=== PATIENT | male | born 1960 | race Caucasian/White ===

== ENCOUNTER 2019-10-20 08:36 | Emergency (ER) | payer OTHER ==
--- NOTE | 2019-10-20 09:05 | ED Physician Documentation ---
History of Present Illness - Stated complaint Stated Complaint: FACIAL NUMBNESS - LT SIDE - Chief complaint Chief Complaint: Neuro - History obtained from History obtained from: Patient - Additonal information Additional information: Patient comes emergency department complaining of right facial droop that he noticed this morning. Patient states he felt some numbness on his left face yesterday and had some weakness there. However, this seemed to resolve on its own. Patient states that he woke up this morning with low for his dog and that his right eye was tearing and felt scratchy. He looked in the mirror and realized his entire right face was drooping and weak. Patient states that he has never had symptoms like this before. He has a history of hypertension, for which she is not currently taking any medications. He states that he has not had any recent viral illnesses, but has had a headache recently. He denies any weakness or sensory deficit in his arms or legs. He states he has been able to walk normally. Patient denies any nausea or chest pain. He is otherwise feeling well. No other complaints at this time. Review of Systems Ten Systems: 10 systems reviewed and negative Constitutional: reports: Reviewed and negative Eyes: reports: Reviewed and negative Ears: reports: Reviewed and negative Nose: reports: Reviewed and negative Throat: reports: Reviewed and negative Cardiac: reports: Reviewed and negative Respiratory: reports: Reviewed and negative GI: reports: Reviewed and negative : reports: Reviewed and negative Skin: reports: Reviewed and negative Musculoskeletal: reports: Reviewed and negative Neurologic: reports: Focal weakness, Numbness Psychiatric: reports: Reviewed and negative Endocrine: reports: Reviewed and negative Immunocompromised: reports: Reviewed and negative PD PAST MEDICAL HISTORY - Past Medical History Past Medical History: Yes Cardiovascular: Hypertension - Present Medications Home Medications: Ambulatory Orders Medication Instructions Recorded Confirmed Acyclovir [Zovirax] 200 mg PO 5XD 7 Days #35 capsule 10/20/19 predniSONE [Prednisone] 60 mg PO DAILY #15 tablet 10/20/19 - Allergies Allergies/Adverse Reactions: Allergies Allergy/AdvReac Type Severity Reaction Status Date / Time Penicillins Allergy Unknown Verified 10/20/19 08:50 - Social History Does the pt smoke?: No Smoking Status: Never smoker PD ED PE NORMAL - Vitals Vital signs reviewed: Yes - General General: Alert and oriented X 3, No acute distress, Well developed/nourished - HEENT HEENT: Atraumatic, PERRL, EOMI, Moist mucous membranes, Other - Neck Neck: Supple, no meningeal sign - Cardiac Cardiac: RRR, No murmur, Strong equal pulses - Respiratory Respiratory: No respiratory distress, Clear bilaterally - Abdomen Abdomen: Soft, Non tender, Non distended - Derm Derm: Normal color, Warm and dry, No rash - Extremities Extremities: No deformity, No edema, No calf tenderness / cord - Neuro Neuro: Alert and oriented X 3, 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 No weakness or numbness anywhere else. 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 Departure - Departure Disposition: 01 Home, Self Care Clinical Impression: Facial paralysis/[place] palsy Condition: Stable Instructions: ED [place] Palsy Prescriptions: predniSONE [Prednisone] 60 mg PO DAILY #15 tablet Acyclovir [Zovirax] 200 mg PO 5XD 7 Days #35 capsule Comments: Your head CT looks good, and shows no sign of stroke. 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 This is not related to a stroke, and will pass on its own. It is usually caused by inflammation due to viral infection of the nerve, which causes swelling of the nerve, with resultant compression at one of the narrow sites of exit through the bone. Therapy is aimed at decreasing inflammation with anti-inflammatory medications such as ibuprofen, as well as a short course of steroids. An additional approach is to treat with antiviral medication to combat the action of the virus upon your nerve. All of these have been prescribed for you, with the goal of shortening the duration of symptoms. Without these medications, your nerve will still recover, but it may take a little longer. Symptoms may last anywhere from a week to several months, but most commonly, duration is approximately 1 month. Please follow-up with your primary care physician in a few weeks if you do not notice any improvement beginning. If you develop weakness in your arms or legs, especially in one side or the other, please return to the emergency department for further evaluation.
--- NOTE | 2019-10-20 09:38 | CT Report ---
PROCEDURE: HEAD WO INDICATIONS: facial paralysis TECHNIQUE: Noncontrast 4.5 mm thick angled axial sections acquired from the foramen magnum to the vertex. For r adiation dose reduction, the following was used: automated exposure control, adjustment of mA and/or kV according to patient size. COMPARISON: None. FINDINGS: Image quality: Excellent. CSF spaces: Basal cisterns are patent. No extra-axial fluid collections. Ventricles are normal in size and shape. Brain: No midline shift. No intracranial masses or hemorrhage. Sow-white matter interface is norm al. Skull and face: Calvarium and visualized facial bones are intact, without suspicious lesions. Sinuses: Visualized sinuses and mastoids are clear. IMPRESSION: 1. No acute intracranial disease process. 2. No intracranial hemorrhage. Reviewed by: Dorene Izquierdo MD, PhD on 10/20/2019 9:36 AM PDT Approved by: Dorene Izquierdo MD, PhD on 10/20/2019 9:36 AM PDT Station ID: [id number]
[2019-10-20 10:01] VITALS: BP 155/99
== END 2019-10-20 09:57 | disposition home or self-care (01) ==
LOC: ED 08:36
DX: G51.0 Bell's palsy (principal); I10 Essential (primary) hypertension
CPT/HCPCS: 70450; 99284

== ENCOUNTER 2023-07-25 14:29 | Emergency (ER) | payer OTHER ==
[2023-07-25] MEDS: BUPIVACAINE 0.5% PF 10 ML VIAL IM ONE (15:03)
--- NOTE | 2023-07-25 15:34 | XRAY Report ---
PROCEDURE: Finger(s) RT INDICATIONS: right thumb vs table saw TECHNIQUE: AP hand, 2 views of the first finger(s) acquired. COMPARISON: None. FINDINGS: Bones: Tiny chip fractures can be seen involving the distal aspect of the distal phalanx of the thum b. Soft tissues: Associated soft tissue injury can be seen, with overlying bandaging material. IMPRESSION: Tiny chip fractures seen involving the distal aspect of the distal phalanx of the thumb. Reviewed by: Arnol Álvarez MD on 07/25/2023 2:33 PM LISA Approved by: Arnol Álvarez MD on 07/25/2023 2:33 PM LISA Station ID: [id number]
[2023-07-25] MEDS: ceFAZolin (2G) 2 GM in SODIUM CHLORIDE 0.9% 100ML 100 ML IV STA (15:53)
[2023-07-25] MEDS: TETANUS/DIPHTHERIA/PERTUSSIS 0.5 ML SYRINGE IM ONE (15:59)
[2023-07-25] MEDS: BACITRACIN ZINC OINT 1 PACKET TOP STA (16:26)
[2023-07-25] MEDS: oxyCODONE 5 MG TABLET PO STA (16:26)
--- NOTE | 2023-07-25 16:28 | ED Physician Documentation ---
PD HPI SKIN - Stated complaint Stated Complaint: LT THUMB LAC - Chief complaint Chief Complaint: Laceration - Additional information Additional information: 63-year-old male presents emergency department for left thumb laceration. Patient was using a table saw and actually got too close. He has a significant amount of bleeding to the left tip of his thumb. Patient says that he is in a severe amount of pain. He is not sure if he is up-to-date with his tetanus shot. PD PAST MEDICAL HISTORY - Past Medical History Cardiovascular: Hypertension - Past Surgical History Past Surgical History: No - Present Medications Home Medications: Ambulatory Orders Medication Instructions Recorded Confirmed Acyclovir [Zovirax] 200 mg PO 5XD 7 Days #35 capsule 10/20/19 predniSONE [Prednisone] 60 mg PO DAILY #15 tablet 10/20/19 Losartan [Cozaar] 50 mg PO DAILY #30 tablet 07/25/23 cephALEXin [Keflex] 500 mg PO Q6H 5 Days #28 cap 07/25/23 oxyCODONE [Roxicodone] 5 mg PO Q4-6H PRN #10 tablet 07/25/23 - Allergies Allergies/Adverse Reactions: Allergies Allergy/AdvReac Type Severity Reaction Status Date / Time Penicillins Allergy Unknown Verified 07/25/23 14:48 - Social History Does the pt smoke?: No Smoking Status: Never smoker PD ED PE NORMAL - Vitals Vital signs reviewed: Yes - General General: Alert and oriented X 3, No acute distress, Well developed/nourished - Derm Derm: Other (large laceraton to Right thumb with missing tissue, no tendon exposure.) Results - Vitals Vitals: Vital Signs - 24 hr 07/25/23 07/25/23 14:40 17:44 Temperature 36.5 C Heart Rate 88 80 Respiratory 18 18 Rate Blood Pressure 194/111 H 177/107 H O2 Saturation 97 100 Oxygen O2 Source Room air - Rads (name of study) Right thumb x-ray Relevant Findings:: Final report received, EMP independent interpretation of test, Other (2 tiny chip fractures at the distal aspect of the phalanx of the thumb) Procedures - Laceration (location) Right thumb laceration Length in cm: 7 (laceration with missing tissue) Wound type: Irregular, Into muscle Neurovascular status: Sensory intact, Motor intact, Vascular intact Tendon involvement: Tendon intact Anesthesia: Lidocaine 1%, Other (digital block) Wound preparation: Hibiclens, Irrigated copiously NS, Debrided moderately, Wound explored, To the base, debridement of wound edges (traumatic laceration/avulsion) Skin layer closure: Nylon, Size #-0 - enter number (4-0), Sutures - enter # (4) Other: Patient tolerated well, Neurovascular intact, Dressing applied, Tetanus booster given PD Medical Decision Making - ED course ED course: Wound inspected under direct bright light with good visualization. Area with linear laceration across soft tissue At the top of the finger going through fingernail And then an open wound with a lot of missing tissue to the medial portion of the thumb measuring about 7 m in diameter. No exposure of tendon. No overt foreign body. Difficult time getting hemostatic we had to apply a lot of pressure as well as finger tourniquet to help with bleeding it was eventually controlled. Neurovascular exam congruent with above. Area extensively irrigated with sterile normal saline under pressure After soaked in Hibiclens water solution for about 15 minutes. Laceration repaired, It was quite complex. 2 interrupted sutures were placed at the tip of the finger the wound that had spread down the finger with a lot of missing tissue did appear to have a deep laceration within the wound so 2 additional loose sutures were placed over that wound to keep that tissue together. X-rays were complete and it did reveal that there was a 2 tiny chip fractures so for this reason patient was given 1 IV dose of Ancef And started on p.o. Keflex (please see procedure note for further details). Patient tolerated procedure well and neurovascular exam intact and unchanged post repair with intact distal pulses and cap refill. Cautious return precautions discussed w/ full understanding. Wound care discussed. Prompt follow up with primary care physician discussed and return for suture removal in 10 days And patient was also told to follow-up with Ortho outpatient For further evaluation of this complex wound. He was given bacitracin and taught how to take care of this wound at home Departure - Departure Disposition: 01 Home, Self Care Clinical Impression: Laceration of left thumb Qualifiers: Encounter type: initial encounter Damage to nail status: with damage Foreign body presence: without foreign body Qualified Code(s): S61.112A - Laceration without foreign body of left thumb with damage to nail, initial encounter Instructions: ED Laceration Hand Follow-Up: [facility] [Provider Group] Prescriptions: Losartan [Cozaar] 50 mg PO DAILY #30 tablet cephALEXin [Keflex] 500 mg PO Q6H 5 Days #28 cap oxyCODONE [Roxicodone] 5 mg PO Q4-6H PRN #10 tablet PRN Reason: Pain >8 Comments: Come back for any signs of infection which would include: Redness, swelling, drainage, increased pain, or fevers. You can wash it anti-bacterial soap and water twice a day followed by dressing changes. Keep it covered, especially the raw portion of the thumb with bacitracin ointment which is available over the counter and non adhesive gauze; avoid neosporin. Follow-up in 10 days for suture removal. I have placed a referral to our [facility] group who I think you should follow up with given the complexity of the young I am prescribing a short course of narcotic pain medication for you. These are potentially dangerous and addictive medications that should be used carefully. These medications may constipate you. Take an hbwh-eic-[id number] stool softener (docusate) twice daily with plenty of water while taking these medications. If you go 24 hours without a bowel movement, take [id number] miralax, per package instructions. Do not drink or drive while taking these medications. If you received narcotic or sedating medications while in the emergency department, do not drive for 24 hours. Store this medication in a safe, secure place and out of reach of children. It is a violation of federal law to give or sell this medication to another person or to use in a manner other than prescribed. The ED will not refill narcotic prescriptions, including prescriptions lost or stolen. To dispose of unwanted medications: 1. [facility] at [address] [place] [address] in [place] has a medication drop box. They accept prescription medications (in pill form) Thursday through Thursday 9:00 a.m. to 5:00 p.m. 2. [facility] accepts prescription medications (in pill form only) for disposal year round. Call for more information. 3. Contact the [facility] for the next [facility] sponsored prescription drug collection event. , [phone], or [phone]; Note that many narcotic pain relievers also contain Tylenol/acetaminophen. Please ensure that your total dose of acetaminophen from all sources does not exceed 3 g (3000 mg) per day. Forms: PCP List Discharge Date/Time: 07/25/23 17:43
[2023-07-25] MEDS: LOSARTAN 50 MG TABLET PO SCH (17:43)
[2023-07-25 17:53] VITALS: BP 177/107; O2SAT 100
[2023-07-26] MEDS ORDERED: LOSARTAN 50 MG TABLET PO SCH (09:00)
== END 2023-07-25 17:43 | disposition home or self-care (01) ==
LOC: ED 14:29
DX: S61.012A Laceration without foreign body of left thumb without damage to nail, initial encounter (principal); W27.0XXA Contact with workbench tool, initial encounter; I10 Essential (primary) hypertension; Z23 Encounter for immunization
CPT/HCPCS: 13132; 73140; 90471; 90715; 96365; 99283; 99284; A9270